=== PATIENT | female | born 1950 | race Caucasian/White ===

== ENCOUNTER → 2017-05-26 | Outpatient (CLI) | payer OTHER | LOC: FIMAGING 09:42 | PROVIDERS: ATTEND Family Medicine | DX: R91.8 Other nonspecific abnormal finding of lung field (principal); R09.89 Other specified symptoms and signs involving the circulatory and respiratory systems; E78.5 Hyperlipidemia, unspecified ==

== ENCOUNTER → 2017-07-13 | Outpatient (CLI) | payer OTHER | LOC: FIMAGING 09:19 | PROVIDERS: ATTEND Family Medicine | DX: Z13.820 Encounter for screening for osteoporosis (principal); M85.80 Other specified disorders of bone density and structure, unspecified site; Z82.62 Family history of osteoporosis ==